=== PATIENT | female | born 1950 | race Caucasian/White ===

== ENCOUNTER 2016-11-30 02:20 | Emergency (ER) | payer OTHER ==
[~2016-11-30] VITALS: Ht 152.4 cm; Wt 67.1 kg
[~2016-11-30 02:20] MED LIST: HYDR25TA32 PO; METO50TA68 PO
[2016-11-30 02:23] VITALS: BP 166/100
--- NOTE | 2016-11-30 02:34 | NUR ---
PT TAKEN TO BED 7
--- NOTE | 2016-11-30 02:38 | NUR ---
65/F CAME IN DUE TO HEADACHE FOR 3 DAYS. PATIENT STATES PAIN OF 10/10 AT THIS TIME; VSS; PATIENT POSITIONED FOR COMFORT; HOB ELEVATED; BEDRAILS UP X2; BED DOWN. ER MD MADE AWARE OF PT STATUS.
--- NOTE | 2016-11-30 02:55 | NUR ---
Dr. Roa evaluating patient at bedside.
[2016-11-30] MEDS ORDERED: NACL 0.9% 1,000 ML IV ONE (03:01)
[2016-11-30] MEDS ORDERED: diphenhydrAMINE 50 MG/ML VIAL IVP ONE (03:05)
[2016-11-30] MEDS ORDERED: METOCLOPRAMIDE 10 MG/2 ML INJ VIAL IVP ONE (03:05)
--- NOTE | 2016-11-30 03:51 | NUR ---
IV removed, catheter intact and site benign. Applied folded 4x4 gauze and tape to stop bleeding.
[2016-11-30 04:00] VITALS: BP 155/92
--- NOTE | 2016-11-30 04:15 | NUR ---
Patient discharged with v/s stable. Written and verbal after care instructions given and explained. Patient alert, oriented and verbalized understanding of instructions. Ambulatory with steady gait. All questions addressed prior to discharge. ID band removed. Patient advised to follow up with PMD. Rx of ZOFRAN 8MG given. Patient educated on indication of medication including possible reaction and side effects. Opportunity to ask questions provided and answered.
== END 2016-11-30 04:15 | disposition home or self-care (01) ==
LOC: MED 02:20
DX: R51 Headache (principal); R00.2 Palpitations; R11.0 Nausea
CPT/HCPCS: 81002; 93005; 96361; 96374; 96375; 99284; J1200; J2765; J7030

== ENCOUNTER 2016-12-01 18:19 | Inpatient (IN) | payer OTHER ==
[~2016-12-01] VITALS: Ht 162.6 cm; Wt 66.7 kg
[~2016-12-01 18:19] MED LIST changes: +COZAAR50 MG PO; +CYCLOBENZAPRINE10 M5 PO; -HYDR25TA32 PO; +HYDROCHLOROTHIA25 M1 PO; -METO50TA68 PO; +METOPROLOL50 MG PO; +OMEPRAZOLE20 MG PO; +TYLENOL325 M1 PO
[2016-12-01 18:27] VITALS: BP 154/88
--- NOTE | 2016-12-01 19:25 | NUR ---
65Y F BIB FAMILY C/O LOWER ABD PAIN X30 MIN WITH DIARRHEA. PAIN STARTED AFTER TAKING AZITHROMYCIN; PT STATES SHE ALSO HAS BEEN HAVING BLOOD IN HER STOOL.
--- NOTE | 2016-12-01 19:25 | NUR ---
TO ER BED 4
[2016-12-01] MEDS ORDERED: NACL 0.9% 1,000 ML IV ONE ×2 (19:28→20:55)
[2016-12-01] MEDS ORDERED: MORPHINE SULFATE 4 MG/ML SYR IVP ONE (19:30)
[2016-12-01] MEDS ORDERED: ONDANSETRON 4 MG/2 ML VIAL IVP ONE (19:30)
[2016-12-01] MEDS ORDERED: metroNIDAZOLE 500 MG/NS PREMIX 100 ML IV ONE (20:35)
[2016-12-01] MEDS ORDERED: DICYCLOMINE 20 MG/2 ML VIAL IM ONE (20:35)
[2016-12-01] MEDS ORDERED: KETOROLAC 30 MG/ML VIAL IVP ONE (20:45)
[2016-12-01] MEDS ORDERED: LEVOFLOXACIN 750 MG/D5W PREMIX 150 ML IV ONE (20:50)
[2016-12-01] MEDS ORDERED: ACETAMINOPHEN 325 MG TAB PO PRN (20:55)
[2016-12-01] MEDS ORDERED: DOCUSATE SODIUM 100 MG GELCAP PO PRN (20:55)
--- NOTE | 2016-12-01 21:05 | NUR ---
Pt report given to GAVIN RIVAS . Transfer of care at this time.
--- NOTE | 2016-12-01 21:05 | NUR ---
Patient will be admitted to care of DR BARRIENTOS . Admited TELE 122A. Will go to rooM 122A. Belongings list completed. Report to GAVIN RIVAS .
[2016-12-01 21:20] VITALS: BP 100/61
--- NOTE | 2016-12-01 21:20 | NUR ---
ADMITTED A 65 YEAR OLD FEMALE FROM ER TO TELE FLOOR VIA GURNEY. PATIENT IS AWAKE, ALERT AND ORIENTED X4. NOT IN ACUTE DISTRESS. DENIES ABDOMINAL PAIN AT THIS TIME. IVF INFUSING WELL ON THE RIGHT FORE ARM. PLAN OF CARE DISCUSSED AND VERBALIZED UNDERSTANDING. INITIATED CONTACT ISOLATION FOR PRESENCE OF SHINGLES. BED IN LOW POSITION AND CALL LIGHT WITHIN THE REACH. WILL CONTINUE TO MONITOR.
[2016-12-01 23:25] VITALS: BP 95/54
[2016-12-01 23:33] VITALS: BP 92/56
[2016-12-01] MEDS: HYDROcodone/APAP 5/325 MG 1 TAB TAB PO PRN (23:35)
--- NOTE | 2016-12-01 23:35 | NUR ---
C/O ABDOMINAL PAIN. MEDICATED WITH NORCO. WILL CONTINUE TO MONITOR.
--- NOTE | 2016-12-02 01:00 | NUR ---
MADE ROUNDS, PATIENT IS SLEEPING. NO SIGNS AND SYMPTOMS OF PAIN.
--- NOTE | 2016-12-02 03:00 | NUR ---
SLEEPING AT THIS TIME. NO S/S OF ANY DISCOMFORT NOR PAIN NOTED.
[2016-12-02 04:00] VITALS: BP 96/61
[2016-12-02] MEDS: metroNIDAZOLE 500 MG/NS PREMIX 100 ML IV SCH ×4 (04:42→17:07)
--- NOTE | 2016-12-02 05:00 | NUR ---
AWAKE. NO C/O PAIN NOTED. INSTRUCTED TO CALL IF PAIN JUST CAME BACK. NOT TO WAIT FOR SEVERE PAIN .VERBALIZED UNDERSTANDING.
--- NOTE | 2016-12-02 07:20 | NUR ---
ENDORSED PT IN STABLE CONDITION TO AM NURSE.
--- NOTE | 2016-12-02 07:25 | NUR ---
RECEIVED REPORT FROM ROB ALONSO. PT IS A/OX4, AMBULATORY, PT HAS IV ON RT FA, PATENT, INTACT, FLUSHING WELL, PT HAS SIGNS OF SHINGLES ON THE RIGHT THIGH, NO S/S OF RESPIRATORY DISTRESS OR DISCOMFORT NOTED, DISCUSSED PLAN OF CARE WITH PT, PT VERBALIZED UNDERSTANDING, DR. MUNGUIA IS AT BEDSIDE, CALL LIGHT WITHIN REACH, WILL CONTINUE TO MONITOR.
[2016-12-02 08:00] VITALS: BP 98/61
[2016-12-02] MEDS: HYDROCHLOROTHIAZIDE 25 MG TAB PO SCH (09:00)
[2016-12-02] MEDS ORDERED: METOPROLOL 50 MG TAB PO SCH (09:00)
--- NOTE | 2016-12-02 09:40 | NUR ---
PT IS RESTING IN BED, NO S/S OF RESPIRATORY DISTRESS OR DISCOMFORT NOTED, CALL LIGHT WITHIN REACH, WILL CONTINUE TO MONITOR.
[2016-12-02] MEDS: LACTOBACILLUS RHAMNOSUS GG 1 EACH CAP PO SCH (09:50)
[2016-12-02] MEDS: HYDROcodone/APAP 5/325 MG 1 TAB TAB PO PRN ×2 (09:51→16:09)
[2016-12-02] MEDS: PANTOPRAZOLE 40 MG TABEC PO SCH (09:51)
--- NOTE | 2016-12-02 09:58 | NUR ---
PATIENT HAS BEEN SCREENED AND CATEGORIZED HIGH NUTRITION RISK. PATIENT WILL BE SEEN WITHIN 1-2 DAYS OF ADMISSION. 12/02/16-12/03/[address] Addendum: 12/02/16 at [address] [facility] CONSULT RECEIVED ON 12/02/16 FOR "WOUNDS/PRESSURE ULCER", CONSULT CANCELLED ON 12/02/16. PATIENT DOES NOT MEET HIGH RISK CRITERIA PER HOSPITAL POLICY. PT WILL BE SEEN AND ASSESSED MODERATE NUTRITION RISK WITHIN 3-5 DAYS (12/04/16-12/06/16) OF ADMISSION ACCORDING TO THE NUTRITION CARE POLICY [address]
[2016-12-02] MEDS ORDERED: ACYCLOVIR 500 MG in NACL 0.9% 100 ML IV SCH (10:00)
[2016-12-02] MEDS: NACL 0.9% 1,000 ML IV SCH ×2 (10:00→19:20)
--- NOTE | 2016-12-02 11:50 | NUR ---
PT IS SLEEPING AT THIS TIME.
[2016-12-02 12:00] VITALS: BP 104/67
--- NOTE | 2016-12-02 13:30 | NUR ---
PT IS RESTING IN BED, DAUGHTER IS AT BEDSIDE.
--- NOTE | 2016-12-02 15:30 | NUR ---
PT IS RESTING IN BED WATCHING TV, CALL LIGHT IS WITHIN REACH.
[2016-12-02 16:00] VITALS: BP 112/68
--- NOTE | 2016-12-02 17:30 | NUR ---
PT IS RESTING IN BED, FAMILY MEMBER IS AT BEDSIDE, CALL LIGHT WITHIN REACH.
--- NOTE | 2016-12-02 19:25 | NUR ---
ENDORSED PT TO ROB GOLDSMITH. FOR CONTINUITY OF CARE, PT STABLE AT THIS TIME. DR. STEPHENSON IS AT PT BEDSIDE.
--- NOTE | 2016-12-02 19:26 | NUR ---
MD STEPHENSON AT BEDSIDE EVALUATING PATIENT.
--- NOTE | 2016-12-02 19:28 | NUR ---
RECEIVED PT IN STABLE CONDITION FROM ROB SEGOVIA. NO SOB, NO SIGNS OF DISTRESS. PT IS AOX4, AMBULATORY. VS STABLE ON ROOM AIR. PT WITH SCABIES WOUNDS TO RT THIGH PAIGE. PT C/O PAIN AND NAUSEA, WILL MEDICATE PER MD ORDER. IV TO RT FA 22G PATENT, ASYMPTOMATIC INTACT, IVF RUNNING. DAUGHTER AT BEDSIDE. PLAN OF CARE DISCUSSED WITH PT. SAFETY MEASURES IN PLACE. CALL LIGHT WITHIN REACH. WILL CONTINUE TO MONITOR.
[2016-12-02 20:00] VITALS: BP 131/73
[2016-12-02] MEDS: ONDANSETRON 4 MG/2 ML VIAL IVP PRN (20:09)
[2016-12-02] MEDS: ACYCLOVIR 500 MG in NACL 0.9% 100 ML IV SCH (20:09)
[2016-12-02] MEDS: MORPHINE SULFATE 2 MG/ML SYR IVP PRN (20:09)
--- NOTE | 2016-12-02 20:09 | NUR ---
MEDICATED PT WITH DUE IV ABX AND MEDICATED FOR PAIN AND NAUSEA PER MD ORDER. PT TOLERATED WELL. NO SOB, NO SIGNS OF DISTRESS. IV SITE ASYMPTOMATIC, INTACT, PATENT, IVPB RUNNING. PLAN OF CARE DISCUSSED WITH PT AND DAUGHTER, SAFETY MEASURES IN PLACE. CALL LIGHT WITHIN REACH. WILL CONTINUE TO MONITOR.
--- NOTE | 2016-12-02 20:15 | NUR ---
EDUCATED PT AND DAUGHTER THAT MD ORDERED STOOL SAMPLE X3, SET UP COLLECTION CUP IN BATHROOM AND EDUCATED PT ON HOW TO PROVIDE SAMPLE, PT VERBALIZED UNDERSTANDING.
--- NOTE | 2016-12-02 22:38 | NUR ---
PT ASLEEP IN BED. NO SOB, NO SIGNS OF DISTRESS. IV SITE ASYMPTOMATIC, INTACT, PATENT, IVF RUNNING. SAFETY MEASURES IN PLACE. CALL LIGHT WITHIN REACH. WILL CONTINUE TO MONITOR.
[2016-12-03] VITALS (7 sets, daily range): BP systolic 112–145; BP diastolic 74–87
--- NOTE | 2016-12-03 00:20 | NUR ---
VS STABLE ON ROOM AIR. NO SOB, NO SIGNS OF DISTRESS PT DENIES PAIN AT THIS TIME. IV TO RT FA INFILTRATED, STOPPED IVF, WILL DC AND START NEW IV. PLAN OF CARE DISCUSSED WITH PT. SAFETY MEASURES IN PLACE. CALL LIGHT WITHIN REACH. WILL CONTINUE TO MONITOR.
--- NOTE | 2016-12-03 00:34 | NUR ---
DC IV TO RT FA, CANNULA INTACT. STARTED NEW IV TO LT WRIST 22G PT TOLERATED WELL. PATENT, ASYMPTOMATIC, INTACT, IVPB RUNNING.
[2016-12-03] MEDS: metroNIDAZOLE 500 MG/NS PREMIX 100 ML IV SCH ×4 (00:44→17:15)
[2016-12-03] MEDS: MORPHINE SULFATE 2 MG/ML SYR IVP PRN ×4 (02:23→23:04)
--- NOTE | 2016-12-03 02:23 | NUR ---
PT C/O PAIN, MEDICATED PER MD ORDER. PT TOLERATED WELL. NO SOB, NO SIGNS OF DISTRESS. IV SITE ASYMPTOMATIC, INTACT, PATENT, IV RUNNING. PLAN OF CARE DISCUSSED WITH PT. SAFETY MEASURES IN PLACE. CALL LIGHT WITHIN REACH. WILL CONTINUE TO MONITOR.
[2016-12-03] MEDS: ACYCLOVIR 500 MG in NACL 0.9% 100 ML IV SCH ×3 (04:03→20:39)
--- NOTE | 2016-12-03 04:03 | NUR ---
VS STABLE ON ROOM AIR. NO SOB, NO SIGNS OF DISTRESS PT DENIES PAIN AT THIS TIME. IV SITE ASYMPTOMATIC, INTACT, PATENT, IVPB RUNNING. PLAN OF CARE DISCUSSED WITH PT. SAFETY MEASURES IN PLACE. CALL LIGHT WITHIN REACH. WILL CONTINUE TO MONITOR.
[2016-12-03] MEDS: NACL 0.9% 1,000 ML IV SCH ×3 (05:24→20:51)
--- NOTE | 2016-12-03 07:38 | NUR ---
ENDORSED PT IN STABLE CONDITION TO ROB BANERJEE. ALL NEEDS HAVE BEEN MET AT THIS TIME.
--- NOTE | 2016-12-03 07:39 | NUR ---
PT AWAKE AND ALERT, NO SIGNS OF ACUTE DISTRESS, BREATHING EVEN AND UNLABORED BILATERALLY, BOWEL SOUNDS ACTIVE IN ALL 4 QUADRANTS, AMBULATE WITH BRP, SKIN INTACT WITH TWO SMALL SCABS ON RIGHT ANTERIOR THIGH, BOWEL AND BLADDER CONTINENCE, IV PATIENT AND INFUSING WITHOUT REDNESS, BED IN LOW POSITION WITH BILATERAL HALF SIDE RAILS UP, CALL LIGHT WITHIN REACH.
[2016-12-03] MEDS: HYDROCHLOROTHIAZIDE 25 MG TAB PO SCH (08:52)
[2016-12-03] MEDS: PANTOPRAZOLE 40 MG TABEC PO SCH (08:52)
[2016-12-03] MEDS: LACTOBACILLUS RHAMNOSUS GG 1 EACH CAP PO SCH (08:52)
[2016-12-03] MEDS: HYDROcodone/APAP 5/325 MG 1 TAB TAB PO PRN (17:19)
--- NOTE | 2016-12-03 19:36 | NUR ---
PT ALERT AND AWAKE, NO SIGNS OF ACUTE DISTRESS, BED IN LOW POSITION WITH BILATERAL HALF SIDE RAILS UP, CALL LIGHT WITHIN REACH, ENDORSED TO PLATE STACKER NURSE FOR CONTINUITY OF CARE.
--- NOTE | 2016-12-03 20:00 | NUR ---
RECEIVED AWAKE, ALERT. AFEBRILE, NOT IN ACUTE DISTRESS. VERBALIZED ABDOMINAL PAIN AND NAUSEA BUT REFUSED MEDICATIONS AT THIS TIME. IV FLUID NS INFUSING AT 110 ML/HR VIA LEFT WRIST GAUGE 22 INTACT AND PATENT. SAO2=96% ON ROOM AIR. SB/SR @ HIGH 50 TO LOW 60'S ON THE MONITOR. DAUGHTER AT BEDSIDE. VS STABLE, WILL CONTINUE TO MONITOR. NEEDS ATTENDED.
[2016-12-03] MEDS: ONDANSETRON 4 MG/2 ML VIAL IVP PRN (20:46)
--- NOTE | 2016-12-03 20:46 | NUR ---
COMPLAINED OF WORSENING NAUSEA. ZOFRAN 4 MG IVP GIVEN REQUESTED.
[2016-12-03] MEDS ORDERED: LEVOFLOXACIN 750 MG/D5W PREMIX 150 ML IV SCH (21:00)
--- NOTE | 2016-12-03 22:56 | NUR ---
COMPLAINED OF REDNESS,PAIN ON THE IV SITE. GAUGE 18 IV LINE ESTABLISHED TO THE RIGHT WRIST. LEVAQUIN INFUSION RESTARTED.
--- NOTE | 2016-12-03 23:05 | NUR ---
COMPLAINED OF WORSENING PAIN (7/10). MORPHINE 1 MG IVP GIVEN ORDERED.
--- NOTE | 2016-12-03 23:30 | NUR ---
PT/FAMILY AGAIN COMPLAINED OF REDNESS PROXIMAL TO THE IV SITE. REDNESS ON THE OLD IV RESOLVED. PT. HAS HAD A DOSE OF LEVAQUIN THIS HOSPITALIZATION. EXPLAINED TO PT/DAUGHTER THAT IT COULD BE A LOCALIZED REACTION/IRRITATION. LEVAQUIN INFUSION STOPPED. WILL ENDORSE TO AM SHIFT IN AM.
[2016-12-04] VITALS: BP 147/94
--- NOTE | 2016-12-04 | NUR ---
AWAKE,NOT IN ANY KIND OF DISTRESS. VERBALIZED TOTAL RELIEF OF PAIN. FLAGYL IVPB GIVEN. REDNESS AT THE IV SITE RESOLVED. SIDE RAILS UP, CALL LIGHT WITHIN REACH. KEPT WARM AND COMFORTABLE. VS REMAIN STABLE.
--- NOTE | 2016-12-04 01:00 | NUR ---
COMPLAINED OF PALPITATION AND NAUSEA. SHE THINKS HER BP IS VERY HIGH. VS RECHECKED IV=178/85 HR=65. NAUSEA MEDICATION NOT DUE. ICE CHIPS GIVEN FOR NOW.
[2016-12-04 04:00] VITALS: BP 142/74
--- NOTE | 2016-12-04 04:00 | NUR ---
AWAKE, VERBALIZED IMPROVEMENT OF NAUSEA. PAIN IS MINIMAL /10. VS REMAIN STABLE. WILL CONTINUE TO MONITOR.
[2016-12-04] MEDS: ACYCLOVIR 500 MG in NACL 0.9% 100 ML IV SCH ×2 (04:54→14:15)
[2016-12-04] MEDS: metroNIDAZOLE 500 MG/NS PREMIX 100 ML IV SCH ×3 (06:01→13:05)
--- NOTE | 2016-12-04 07:22 | NUR ---
ENDORSED CARE TO STEPHANIE RIVAS.
--- NOTE | 2016-12-04 07:23 | NUR ---
PT AWAKE AND ALERT AND ORIENTED X4, PERRLA, NO SIGNS OF ACUTE DISTRESS, BREATHING EVEN AND UNLABORED BILATERALLY, BOWEL SOUNDS ACTIVE IN ALL FOUR QUADRANTS, COMPLAINT OF PAIN 8/10 IN ABDOMEN, AMBULATORY WITH ASSIST, SKIN INTACT, BOWEL AND BLADDER CONTINENCE, TELE MONITOR IN PLACE, BED IN LOW POSITION WITH ALARM ON AND BILATERAL HALF SIDE RAILS UP, CALL LIGHT WITHIN REACH.
[2016-12-04] MEDS: NACL 0.9% 1,000 ML IV SCH (07:30)
[2016-12-04 08:00] VITALS: BP 141/90
[2016-12-04] MEDS: ONDANSETRON 4 MG/2 ML VIAL IVP PRN (08:40)
[2016-12-04] MEDS: MORPHINE SULFATE 2 MG/ML SYR IVP PRN (08:41)
[2016-12-04] MEDS: LACTOBACILLUS RHAMNOSUS GG 1 EACH CAP PO SCH (08:55)
[2016-12-04] MEDS: HYDROCHLOROTHIAZIDE 25 MG TAB PO SCH (08:55)
[2016-12-04] MEDS: PANTOPRAZOLE 40 MG TABEC PO SCH (08:55)
[2016-12-04 11:44] VITALS: BP 146/80
[2016-12-04] MEDS ORDERED: KETOROLAC 15 MG/ML VIAL IVP PRN (13:00)
[2016-12-04] MEDS ORDERED: IBUPROFEN600 M1 PO (13:29)
[2016-12-04] MEDS ORDERED: FLAGYL500 M1 PO (13:29)
[2016-12-04] MEDS ORDERED: BACTRIM DS 8001 TA1 PO (13:29)
--- NOTE | 2016-12-04 17:35 | NUR ---
PT AWAKE AND ALERT, NO SIGNS OF ACUTE DISTRESS. PROVIDED TEACHING INSTRUCTIONS ON DISCHARGE INCLUDING NEW PRESCRIPTIONS AND CONTINUATION OF OLD MEDICATIONS ALONG WITH SIGNS AND SYMPTOMS OF FEVER. REMOVED WRIST BANDS, IV AND TELE MONITOR. HEALED SCABS ON RIGHT ANTERIOR THIGH INTACT. PT TO D/C TO HOME VIA PRIVATE AUTO WITH FAMILY.
== END 2016-12-04 17:50 | disposition home or self-care (01) | DRG 391 ==
LOC: MED 18:19 → MTU 20:56
PROVIDERS: ADMIT Family Medicine; ATTEND Family Medicine
DX: K57.32 Diverticulitis of large intestine without perforation or abscess without bleeding (principal); N17.0 Acute kidney failure with tubular necrosis; I42.0 Dilated cardiomyopathy; B02.9 Zoster without complications; J45.909 Unspecified asthma, uncomplicated; I27.2 Other secondary pulmonary hypertension; I11.9 Hypertensive heart disease without heart failure; E78.1 Pure hyperglyceridemia; Z79.899 Other long term (current) drug therapy; Z83.3 Family history of diabetes mellitus; Z82.49 Family history of ischemic heart disease and other diseases of the circulatory system; Z84.89 Family history of other specified conditions